=== PATIENT | female | born 1965 | race Caucasian/White ===

== ENCOUNTER 2016-08-16 17:18 | Emergency (ER) | payer MEDICAID ==
[2012-02-25 08:40] VITALS: BMI 25.3
[2016-08-16 18:31] LABS: BASOPHILS 0.3 % (0.0-2.0); EOSINOPHILS 1.7 % (0-7); HEMATOCRIT 40.5 % (36.0-48.0); HEMOGLOBIN 13.4 g/dL (12-16); IMMATURE GRANULOCYTES 0.2 % (0-5); MCHC 33.1 g/dL (31.0-37.0); MCV 93.8 fL (80.0-100.0); MEAN PLATELET VOLUME 10.1 fL (7.4-10.4); MONOCYTES 6.9 % (2-11); NEUTROPHILS 51.9 % (40-80); PLATELET COUNT 186 10x3/uL (130-400); RBC 4.32 10x6/uL (4.00-5.40); WBC 5.8 10x3/uL (4.8-10.8)
[2016-08-16 18:40] LABS: APPEARANCE HAZY (CLEAR); BILIRUBIN NEGATIVE (NEGATIVE); COLOR YELLOW (YELLOW); GLUCOSE NEGATIVE (NEGATIVE); KETONE NEGATIVE (NEGATIVE); LEUKOCYTE ESTERASE TRACE (NEGATIVE); NITRITE NEGATIVE (NEGATIVE); PROTEIN NEGATIVE (NEGATIVE); SPECIFIC GRAVITY 1.025 (1.005-1.020); UROBILINOGEN NORMAL (NORMAL)
[2016-08-16 18:41] LABS: BACTERIA FEW /hpf (NONE SEEN); MUCUS >1+ /lpf (NONE SEEN); RED CELLS - URINE OCC /hpf (0-5)
[2016-08-16 18:46] LABS: ALBUMIN 3.3 g/dL (3.4-5.0); ALKALINE PHOSPHATASE 93 U/L (46-116); ALT (SGPT) 20 U/L (10-68); BILIRUBIN - TOTAL 0.13 mg/dL (0.2-1.3); CALC OSMOLALITY 281 mosm/kg (275-300); CALCIUM 8.2 mg/dL (8.5-10.1); CARBON DIOXIDE 29.9 mmol/L (21.0-32.0); CHLORIDE - SERUM 103 mmol/L (98-107); CREATININE - SERUM 0.7 mg/dL (0.6-1.3); GLUCOSE 122 mg/dL (74-106); POTASSIUM - SERUM 3.6 mmol/L (3.5-5.1); PROTEIN - SERUM 7.1 g/dL (6.4-8.2); SODIUM 141 mmol/L (136-145); UREA NITROGEN 13 mg/dL (7-18); eGFR NON AFRICAN AMERICAN > 90 mL/min (90-120)
[2016-08-16 18:47] LABS: UDS - AMPHET NEGATIVE QUAL (NEGATIVE); UDS - BARB NEGATIVE QUAL (NEGATIVE); UDS - BENZO POSITIVE QUAL (NEGATIVE); UDS - COCAINE NEGATIVE QUAL (NEGATIVE); UDS - METH NEGATIVE QUAL (NEGATIVE); UDS - OPIATE POSITIVE QUAL (NEGATIVE); UDS - PCP NEGATIVE QUAL (NEGATIVE); UDS - THC NEGATIVE QUAL (NEGATIVE)
[2016-08-16 18:54] LABS: CREATINE KINASE 47 UL (21-215); PRO BNP 43 pg/mL (0-125); TROPONIN-I < 0.017 ng/mL (0.000-0.060)
[2016-08-16 19:25] LABS: INR 0.94 (0.85-1.17); PROTIME 12.4 SECONDS (11.6-15.0)
[2016-08-16 19:27] LABS: D-DIMER-QUANTITATIVE < 0.27 ug/mLFEU (0.20-0.54)
== END 2016-08-16 20:47 | disposition home or self-care (01) ==
LOC: D.ER 17:18
PROVIDERS: Nurse Practitioner Family
DX: M54.2 Cervicalgia (principal); M32.9 Systemic lupus erythematosus, unspecified; S86.912A Strain of unspecified muscle(s) and tendon(s) at lower leg level, left leg, initial encounter; X58.XXXA Exposure to other specified factors, initial encounter; Y93.89 Activity, other specified; Y92.89 Other specified places as the place of occurrence of the external cause; M79.7 Fibromyalgia

== ENCOUNTER 2016-11-23 22:37 | Emergency (ER) | payer MEDICAID ==
[2012-02-25 08:40] VITALS: BMI 25.3
== END 2016-11-24 00:48 | disposition home or self-care (01) ==
LOC: D.ER 22:37
DX: S16.1XXA Strain of muscle, fascia and tendon at neck level, initial encounter (principal); V49.9XXA Car occupant (driver) (passenger) injured in unspecified traffic accident, initial encounter; Y93.89 Activity, other specified; Y92.89 Other specified places as the place of occurrence of the external cause; R51 Headache; R11.0 Nausea; M54.9 Dorsalgia, unspecified; F17.200 Nicotine dependence, unspecified, uncomplicated